=== PATIENT | male | born 1955 | race Caucasian/White ===

== ENCOUNTER 2017-06-29 12:16 | Emergency (ER) | payer MEDICARE ==
[2017-06-29 12:39] VITALS: BP 141/106; TEMP 98; O2SAT 96
[2017-06-29] MEDS ORDERED: KETOROLAC TROMETHAMINE INJ 60 MG/2 ML VIAL IM ONE (12:49)
[2017-06-29] MEDS ORDERED: ORPHENADRINE CITRATE 30 MG/ML AMP IM ONE (12:49)
[2017-06-29] MEDS ORDERED: HYDROcodone 10MG/APAP 325MG 1 EA TAB PO ONE (12:50)
--- NOTE | 2017-06-29 12:53 | ED.PDOC ---
History of Present Illness - General Chief Complaint: Lower Extremity Injury Stated Complaint: right leg pain/numbness Time Seen by Provider: 06/29/17 12:49 Source: patient Exam Limitations: no limitations - History of Present Illness Initial Comments: PT REPORTS 3 DAY HISTORY OF PROGRESSIVELY WORSENING LOW BACK PAIN THAT IS NOW RADIATING DOWN THE RIGHT LEG. PT HAS HISTORY OF LUMBAR PROBLEMS BUT STATES IT HAS NOT BOTHERED HIM IN YEARS. PT DOES NOT RECALL ANY SPECIFIC INJURY OR ONSET OF PAIN. PT WAS GIVEN STEROID INJECTION 2 DAYS AGO BY PCP WITH NO IMPROVEMENT IN SYMPTOMS. Severity: severe Improving Factors: nothing Worsening Factors: movement Associated Symptoms: denies symptoms Allergies/Adverse Reactions: Allergies NO KNOWN ALLERGY Allergy (Verified 06/29/17 12:35) Home Medications: Ambulatory Orders Carisoprodol [Soma] 350 mg PO TID PRN #30 tab 06/29/17 Ibuprofen 800 mg PO Q8HR PRN #30 tab 06/29/17 Tramadol HCl [Ultram] 1 - 2 tablet PO Q6HRS PRN #30 tab 06/29/17 Xanax 06/29/17 Zocor 06/29/17 Review of Systems - Review of Systems Constitutional: Denies: chills, fever EENTM: Denies: throat pain, throat swelling Respiratory: Denies: cough, short of breath Cardiology: Denies: chest pain, syncope Gastrointestinal/Abdominal: Denies: constipation, diarrhea Genitourinary: Denies: dysuria, frequency, hematuria Musculoskeletal: States: see HPI, back pain. Denies: joint pain, joint swelling Neurological: States: paresthesia. Denies: weakness Past Medical History (General) - Patient Medical History Hx Stroke: No Hx Congestive Heart Failure: No Hx Diabetes: No Surgical History: no surgical history - Vaccination History Hx Influenza Vaccination: Yes Hx Pneumococcal Vaccination: No - Social History Hx Tobacco Use: Yes Family Medical History - Family History Father Family History: Unknown Living Status: Unknown Physical Exam - Physical Exam General Appearance: Alert, Obvious distress, Well Developed, Well Groomed, Well Hydrated Ears, Nose, Throat: hearing grossly normal Neck: full range of motion, supple Back Exam: normal inspection, no vertebral tenderness, other - RIGHT PARALUMBAR TENDERNESS WITH (+) STRAIGHT LEG RAISE ON RIGHT AT 30 DEGREES Extremity: non-tender, normal inspection, no pedal edema, no calf tenderness Neurologic: no motor/sensory deficits, alert, normal mood/affect, oriented x 3 Skin Exam: normal color, warm/dry Progress - Progress Progress: 06/29/17 14:04 PT REPORTS SIGNIFICANT IMPROVEMENT AFTER TORADOL, NORCO, AND NORFLEX. Departure - Departure Clinical Impression: Sciatica of right side Time of Disposition: 14:05 Disposition: Discharge to Home or Self Care Condition: Good Departure Forms: ED Discharge - Pt. Copy, Patient Portal Self Enrollment Instructions: DI for Back Pain With Sciatica Diet: resume usual diet Activity: increase activity as tolerated, no exercise, no lifting, walking as tolerated Referrals: Lee Boles MD [Primary Care Provider] - 1-2 Weeks Prescriptions: Tramadol HCl [Ultram] 1 - 2 tablet PO Q6HRS PRN #30 tab PRN Reason: Pain Ibuprofen 800 mg PO Q8HR PRN #30 tab PRN Reason: Pain Carisoprodol [Soma] 350 mg PO TID PRN #30 tab PRN Reason: Muscle Spasms Home Medications: Ambulatory Orders Carisoprodol [Soma] 350 mg PO TID PRN #30 tab 06/29/17 Ibuprofen 800 mg PO Q8HR PRN #30 tab 06/29/17 Tramadol HCl [Ultram] 1 - 2 tablet PO Q6HRS PRN #30 tab 06/29/17 Xanax 06/29/17 Zocor 06/29/17
== END 2017-06-29 14:14 | disposition home or self-care (01) ==
LOC: ER 12:16
DX: M54.31 Sciatica, right side (principal); Z87.891 Personal history of nicotine dependence
CPT/HCPCS: J1885; J2360

== ENCOUNTER → 2017-07-19 | Outpatient (CLI) | payer MEDICARE ==
--- NOTE | 2017-07-20 08:53 | MRI ---
MRI right knee without contrast INDICATION: Knee pain radiating into the thigh and calf x3 weeks with swelling and numbness TECHNIQUE: Noncontrast MR imaging right knee standard protocol FINDINGS: Moderate joint effusion. Multifocal grade 3-4 chondral fissuring across the midline trochlea as well as medial greater than lateral patellar facets. There is a focal grade 3 lesion in the medial patellar facet measuring approximately 6 mm wide. Mild lateral patellar tilt. No patellar dislocation. Cruciate ligaments are intact. Extensor tendons are intact. Prominent intrasubstance myxoid degeneration posterior horn and body medial meniscus without discrete articular surface defect. 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 Prominent enthesophyte upper pole patella. Collateral ligaments are intact. 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 Electronically signed by: Robson Veronica MD 07/20/2017 8:52 AM CDT
== END ==
LOC: GMAM 13:58
PROVIDERS: ATTEND Family Medicine
DX: M17.11 Unilateral primary osteoarthritis, right knee (principal); M94.8X6 Other specified disorders of cartilage, lower leg; M25.461 Effusion, right knee

== ENCOUNTER → 2017-07-26 | Outpatient (CLI) | payer MEDICARE | LOC: GMAM 10:35 | PROVIDERS: ATTEND Family Medicine | DX: Z12.5 Encounter for screening for malignant neoplasm of prostate (principal) ==

== ENCOUNTER → 2017-10-26 | Outpatient (CLI) | payer MEDICARE | LOC: GMAM 13:21 | PROVIDERS: ATTEND Family Medicine | DX: E83.52 Hypercalcemia (principal) ==